=== PATIENT | female | born 1940 | race Two or more races ===

== ENCOUNTER 2024-08-05 13:05 | Inpatient (IN) | payer MEDICARE, OTHER ==
[~2024-08-05] VITALS: Ht 157.5 cm; Wt 62.1 kg
--- NOTE | 2024-08-05 13:26 | ED.PDOC ---
SOB-HPI HPI Comments 83 year old female presents to the ED with chief complaint of SOB. EMS reports that the patient and her family at whole all got the flu a week ago, however, after everyone got over their coughs, the patient's lingered along with SOB. EMS relays that the patient is a/o x 2 at baseline. EMS states patient is currently on hospice for CHF. EMS denies any fever, chills, chest pain, N/V/D, or dizziness. 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, Medications, Allergies Information Source: Patient, Emergency Med Personnel Mode of Arrival: EMS Severity: Moderate Timing: Days Duration: Since onset Context: At Rest PE Risk Factors: None History of: None Prehospital treatment: Oxygen Modifying Factors: Nothing Past Medical History PAST MEDICAL HISTORY: CHF, COPD, HTN Surgical History: Denies all surgeries BATTERY CONTAINER TESTER History: Denies all BATTERY CONTAINER TESTER Hx Family History Family History: Reviewed,noncontributory to illness, Unknown Social History Smoker: Unknown Alcohol: Unknown Drugs: Unknown Lives In: Home, Assisted Care Constitutional: denies: chills, diaphoresis, fatigue, fever, malaise, sweats, weakness, others EENTM: denies: blurred vision, double vision, ear bleeding, ear discharge, ear drainage, ear pain, ear ringing, eye pain, eye redness, hearing loss, mouth pain, mouth swelling, nasal discharge, nose bleeding, nose congestion, nose pain, photophobia, tearing, throat pain, throat swelling, voice changes, others Respiratory: reports: cough, shortness of breath; denies: hemoptysis, orthopnea, SOB at rest, SOB with excertion, stridor, wheezing, others Cardiovascular: denies: chest pain, dizzy spells, diaphoresis, Dyspnea on exertion, edema, irregular heart beat, left arm pain, lightheadedness, palpitations, PND, syncope, others Gastrointestinal: denies: abdomen distended, abdominal pain, blood streaked bowels, constipated, diarrhea, dysphagia, difficulty swallowing, hematemesis, melena, nausea, poor appetite, poor fluid intake, rectal bleeding, rectal pain, vomiting, others Genitourinary: denies: abnormal vagina bleeding, burning, dyspareunia, dysuria, flank pain, frequency, hematuria, incontinence, pain, , vagina discharge, urgency, others Neurological: denies: dizziness, fainting, headache, left sided numbness, left sided weakness, numbness, paresthesia, pre-existing deficit, right sided numb ness, right sided weakness, seizure, speech problems, tingling, tremors, weakness, others Musculoskeletal: denies: back pain, gout, joint pain, joint swelling, muscle pain, muscle stiffness, neck pain, others Integumetry: denies: bruises, change in color, change in hair/nails, dryness, laceration, lesions, lumps, rash, wounds, others Allergic/Immunocompromised: denies: Difficulty Healing, Frequent Infections, Hives, Itching, others Hematologic/Lymphatic: denies: anemia, blood clots, easy bleeding, easy bruising, swollen glands, others Endocrine: denies: excessive hunger, excessive sweating, excessive thirst, excessive urination, flushing, intolerance to cold, intolerance to heat, unexplained weight gain, unexplained weight loss, others Psychiatric: denies: anxiety, bipolar disorder, depression, hopeless, panic disorder, schizophrenia, sleepless, suicidal, others All Other Systems: Reviewed and Negative Physical Exam General Appearance: Moderate Distress, Normal HEENT: Normal ENT Inspection, PERRL/EOMI Neck: Full Range of Motion, Non-Tender, Normal, Normal Inspection Respiratory: Chest Non-Tender, Lungs Clear, No Accessory Muscle Use, No Respiratory Distress, Normal Breath Sounds Cardiovascular: No Edema, No JVD, No Murmur, No Gallop, Normal Peripheral Pulses, Regular Rate/Rhythm Breast Exam: Deferred Gastrointestinal: No Organomegaly, Non Tender, No Pulsatile Mass, Normal Bowel Sounds, Soft Genitalia: Deferred Pelvic: Deferred Rectal: Deferred Extremities: No calf tenderness, Normal capillary refill, Normal inspection, Normal range of motion, Non-tender, No pedal edema Musculoskeletal : Apperance: Normal Neurologic: Alert, 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 Was a procedure done?: No Differential Dx Differential Diagnosis: Anxiety, Asthma, Bronchitis, CHF, COPD X-Ray, Labs, Meds, VS Vital Signs Date Time Temp Pulse Resp B/P (MAP) Pulse Ox O2 Delivery O2 Flow Rate FiO2 08/05/24 14:05 78 08/05/24 13:51 97.8 75 20 109/60 (76) 94 Lab Test 08/05/24 14:27 Range/Units White Blood Count Pending Red Blood Count Pending Hemoglobin Pending Hematocrit Pending Mean Corpuscular Volume Pending Mean Corpuscular Hemoglobin Pending Mean Corpuscular Hemoglobin Concent Pending Red Cell Distribution Width Pending Platelet Count Pending Mean Platelet Volume Pending Neutrophils (%) (Auto) Pending Lymphocytes (%) (Auto) Pending Monocytes (%) (Auto) Pending Basophils (%) (Auto) Pending Neutrophils # (Auto) Pending Lymphocytes # (Auto) Pending Monocytes # (Auto) Pending Sodium Level Pending Potassium Level Pending Chloride Level Pending Carbon Dioxide Level Pending Anion Gap Pending Blood Urea Nitrogen Pending Creatinine Pending Glomerular Filtration Rate Calc Pending BUN/Creatinine Ratio Pending Serum Glucose Pending Calcium Level Pending Troponin I High Sensitivity Pending B-Type Natriuretic Peptide Pending Patient appropriate. Complaining of cough. Has been having cough for many weeks. Vitals stable. She is on hospice. No leg swelling. Chronic history. Reviewed her previous visit. Was given steroid. Waiting for family. Continue cardiac monitoring. EKG reviewed does not show any acute changes. Chest x-ray reviewed does show pneumonia. Was given Rocephin. Was given azithromycin. Time of 1ST Reevaluation: 14:20 Reevaluation 1ST: Unchanged Patient Education/Counseling: Diagnosis, Treatment Family Education/Counseling: No Family Present Additional Information I reviewed the following notes from patient's past medical encounters: None The following tests were ordered, and results were reviewed by me: (Labs, XY, EK G) Additional Information was gathered from interviewing the following independent historians: EMS I reviewed and agreed with the following test results read by other providers: (X-Ray, CT, US) I discussed treatment and results with medical personnel. Departure 1 Departure Time of Disposition: 14:43 Impression: Primary Impression: Pneumonia Qualified Codes: J18.9 - Pneumonia, unspecified organism Disposition: ADMITTED INPATIENT Admit to: Med Surg Condition: Guarded Critical Care Note Critical Care Time?: No Stability Stability form required: No Heart Score Heart Score: Heart Score Response (Comments) Value History Slightly Suspicious 0 EKG Normal 0 Age >65 2 Risk Factors >3 or Hx ASHD 2 Troponin Normal limit 0 Total 4 I personally scribed for EARLE MAZA MD ([email or web address]) on 08/05/24 at 13:26. Electronically submitted by Nilton Jack ([email or web address]). EARLE MAZA MD Aug 05, 2024 13:26
--- NOTE | 2024-08-05 14:05 | DVH ---
EXAM: XY CHEST PORTABLE Indication: cough Technique: Single frontal view of the chest was obtained Comparison: None FINDINGS: Lines and Tubes: None Lungs: Diffuse interstitial opacities. Pleura: No effusion. No pneumothorax. Cardiomediastinal contours: Unremarkable Bones: No acute osseous abnormality. IMPRESSION: Findings suggestive of multifocal pneumonia.
[2024-08-05 14:50] LABS: Basophils # (auto) 0.1 10 ^3/uL (0-0.2); Basophils % (auto) 0.7 % (0.0-2.0); Eosinophils # (auto) 0.1 10 ^3/uL (0-0.8); Hematocrit 33.2 % (36.0-46.0); Hemoglobin 11.2 g/dL (12.2-16.2); Lymphocytes # (auto) 1.8 10 ^3/uL (0.4-5.4); Lymphocytes % (auto) 19.1 % (10.0-50.0); Mean Corpuscular Hemoglobin 32.8 pg (28.0-32.0); Mean Corpuscular Hgb Conc. 33.9 g/dL (32.0-36.0); Mean Corpuscular Volume 96.9 fL (80.0-100.0); Monocytes # (auto) 1.1 10 ^3/uL (0-1.3); Monocytes % (auto) 11.7 % (0.0-12.0); Neutrophils # (auto) 6.4 10 ^3/uL (1.6-8.6); Neutrophils % (auto) 67.5 % (37.0-80.0); Nucleated Red Blood Cells % 0.2 %; Platelet Count (auto) 173 10^3/uL (140-450); Red Blood Cells 3.42 10^6/uL (4.0-5.20); Red Cell Distribution Width 12.8 % (11.8-14.3); White Blood Cell 9.5 10^3/uL (4.4-10.8)
[2024-08-05 14:52] LABS: Anion Gap 7 (5-15); Carbon Dioxide 26 mmol/L (20-31); Chloride 102 mmol/L (98-107)
[2024-08-05 14:58] LABS: BUN/Creatinine Ratio 16.7 (10.0-20.0); Blood Urea Nitrogen 16 mg/dL (9-23); Glucose 95 mg/dL (74-106)
[2024-08-05 14:59] LABS: Sodium 135 mmol/L (136-145)
[2024-08-05 15:14] VITALS: PULSE 77; RESP 17; O2SAT 95
[2024-08-05] MEDS ORDERED: ACETAMINOPHEN 325 MG TAB PO PRN (16:45)
[2024-08-05] MEDS ORDERED: PANT40TA57 PO (16:56)
[2024-08-05] MEDS ORDERED: CLOP75TA70 PO (16:56)
[2024-08-05] MEDS ORDERED: LEVO75TA6 PO (16:56)
[2024-08-05] MEDS: AZITHROMYCIN 500MG/ 250ML 250 ML IV ONE (17:07)
[2024-08-05] MEDS: methylPREDNISolone SOD SUCC 125 MG/2 ML VL IV ONE (17:07)
--- NOTE | 2024-08-05 17:08 | DVHHP2 ---
History of Present Illness Reason for Visit: Cough and SOB History of Present Illness Susana Hickman is an 83-year-old female with past medical history of hypertension, COPD, and CHF on hospice who presents to the ED with shortness of breath and cough since Saturday. Patient's daughter in-law reports that she has been sick with a cold. She also reports that she uses oxygen at night unsure what dose. Patient's [id number] Myrna reports that patient does not drink alcohol, smoke, or use illicit drugs, or have any surgical history. Patient denies any chest pain, abdominal pain, nausea, vomiting, diarrhea, lightheadedness, fever, chills, and dizziness. Cardiovascular: CHF, HTN Pulmonary: COPD Past Surgical History: None Family History: None Smoke: No ALCOHOL: none Drugs: None Lives: with Family Domestic Violence: Neg Review of Systems Constitutional: No: Fever, Chills, Sweats, Weakness, Malaise, Other Eyes: No: Pain, Vision change, Conjunctivae inflammation, Eyelid inflammation, Other, Redness ENT: No: Ear pain, Ear discharge, Nose pain, Nose discharge, Nose congestion, Mouth pain, Mouth swelling, Throat pain, Throat swelling, Other Respiratory: Cough, Shortness of breath; No: Dry, SOB with excertion, Wheezing, Hemoptysis, Pleuritic Pain, Sputum, Wheezing, Other Cardiovascular: No: Chest Pain, Palpitations, Orthopnea, Paroxysmal Noc. Dyspnea, Edema, Lt Headedness, Other Gastrointestinal: No: Nausea, Vomiting, Abdominal Pain, Diarrhea, Constipation, Melena, Hematochezia, Other Genitourinary: No Dysuria, No Frequency, No Incontinence, No Hematuria, No Retention, No Other Musculoskeletal: No: other, neck pain, shoulder pain, arm pain, back pain, hand pain, leg pain, foot pain Skin: No: Rash, Lesions, Jaundice, Bruising, Other Neurological: No: Weakness, Numbness, Incoordination, Change in speech, Confusion, Seizures, Other Allergies: Coded Allergies: Penicillins (Verified Allergy, Unknown, 08/05/24) Sulfa Antibiotics (Verified Allergy, Unknown, 08/05/24) Exam Vital Signs Vital Signs Date Time Temp Pulse Resp B/P (MAP) Pulse Ox O2 Delivery O2 Flow Rate FiO2 08/05/24 15:14 77 17 95 Nasal Cannula* 4 36 08/05/24 13:51 97.8 109/60 (76) General Appearance: Alert, Oriented X3, Cooperative, mild distress HEENT: Atraumatic, PERRLA, EOMI, Mucous membr. moist/pink Respiratory: Clear to auscultation, Normal air movement Cardiovascular: Regular rate, Normal S1, Normal S2, No murmurs Abdominal: Normal bowel sounds, Soft, No tenderness, No hepatospenomegaly, No masses Extremities: No clubbing, No cyanosis, No edema, Normal pulses, No tendern ess/swelling Skin: No breakdown, No significant lesion Neuro: Normal speech, Normal tone, Sensation intact Psych/Mental Status: Mental status NL, Mood NL Labs/Xrays Labs Test 08/05/24 14:27 Range/Units White Blood Count 9.5 4.4-10.8 10^3/uL Red Blood Count 3.42 L 4.0-5.20 10^6/uL Hemoglobin 11.2 L 12.2-16.2 g/dL Hematocrit 33.2 L 36.0-46.0 % Mean Corpuscular Volume 96.9 80.0-100.0 fL Mean Corpuscular Hemoglobin 32.8 H 28.0-32.0 pg Mean Corpuscular Hemoglobin Concent 33.9 32.0-36.0 g/dL Red Cell Distribution Width 12.8 11.8-14.3 % Platelet Count 173 140-450 10^3/uL Mean Platelet Volume 7.2 6.9-10.8 fL Neutrophils (%) (Auto) 67.5 37.0-80.0 % Lymphocytes (%) (Auto) 19.1 10.0-50.0 % Monocytes (%) (Auto) 11.7 0.0-12.0 % Eosinophils (%) (Auto) 1.0 0.0-7.0 % Basophils (%) (Auto) 0.7 0.0-2.0 % Neutrophils # (Auto) 6.4 1.6-8.6 10 ^3/uL Lymphocytes # (Auto) 1.8 0.4-5.4 10 ^3/uL Monocytes # (Auto) 1.1 0-1.3 10 ^3/uL Eosinophils # (Auto) 0.1 0-0.8 10 ^3/uL Basophils # (Auto) 0.1 0-0.2 10 ^3/uL Nucleated Red Blood Cells 0.2 % Sodium Level 135 L 136-145 mmol/L Potassium Level 3.0 L 3.5-5.1 mmol/L Chloride Level 102 98-107 mmol/L Carbon Dioxide Level 26 20-31 mmol/L Anion Gap 7 5-15 Blood Urea Nitrogen 16 9-23 mg/dL Creatinine 0.96 0.550-1.02 mg/dL Glomerular Filtration Rate Calc 58 >90 mL/min BUN/Creatinine Ratio 16.7 10.0-20.0 Serum Glucose 95 74-106 mg/dL Calcium Level 9.0 8.7-10.4 mg/dL Troponin I High Sensitivity 33 </=34 ng/L B-Type Natriuretic Peptide 745.71 0-100 pg/mL EXAM: XY CHEST PORTABLE Indication: cough Technique: Single frontal view of the chest was obtained Comparison: None FINDINGS: Lines and Tubes: None Lungs: Diffuse interstitial opacities. Pleura: No effusion. No pneumothorax. Cardiomediastinal contours: Unremarkable Bones: No acute osseous abnormality. IMPRESSION: Findings suggestive of multifocal pneumonia. Assessment/Plan Assessment/Plan Assessment/Plan: PNA IV Solu-Medrol IV antibiotics-ceftriaxone+ azithromycin EKG UA Chest x-ray BNP Troponin negative Lovenox Echo ordered Supportive oxygen Oxygen dependence Chest x-ray a.m. Labs A.m. lab Respiratory treatments IV steroids Hypokalemia Replete lytes Chronic hypertension Continue home meds Chronic CHF Continue home meds FEN/PPX diet HL DVT prophylaxis-Lovenox PUD prophylaxis-Protonix Admit patient to telemetry Discussed plan of care with patient, [id number], and nurse Home medications reconciled Plan discussed with: Patient, Other My Orders Orders - MADHU TENA FISHER Procedure Category Date Status Time Ceftriaxone Ivpb PHA 08/06/24 Verified Rocephin 09:00 Chest Xray 1 View XY 08/06/24 Verified 04:00 Potassium Effervesent PHA 08/05/24 Verified Tab (Klor-Con/Ef) 16:45 Echo 2d Mode Cardiac US 08/05/24 Verified DOP 16:38 Admit ADMIT 08/05/24 Verified 16:38 Allergies MAJOR 08/05/24 Verified 16:38 Code Status CODE 08/05/24 Verified 16:38 Complete Blood Count LAB 08/06/24 Verified 04:00 Comprehensive LAB 1/16/25 Verified Metabolic Panel 04:00 Cardiac DIET 08/05/24 Verified Diet-2gna,Lofat,Lochol Dinner Enoxaparin Sodium PHA 08/06/24 Verified (Lovenox) 10:00 Acetaminophen Tablet PHA 08/05/24 Verified (Tylenol Tablet) 16:45 Date of Service: Aug 05, 2024 Billing Provider: MADHU TENA Common Visit Codes: [id number] INP/OBS CARE (HIGH) MADHU TENA Aug 05, 2024 17:08
[2024-08-05] MEDS: cefTRIAXone 1GM/50ML D5W 50 ML IV ONE (17:14)
[2024-08-05] MEDS ORDERED: ALBUTEROL SULF 2.5 MG/0.5ML(0.5%) NEB SOLN NEB PRN (17:15)
[2024-08-05] MEDS ORDERED: IPRATROPIUM BROM 0.5 MG/2.5ML INH SOL NEB PRN (17:15)
[2024-08-05] MEDS: POTASSIUM EFFERVESENT TAB 25 MEQ PO ONE (17:22)
[2024-08-05 18:10] VITALS: PULSE 64; RESP 28; O2SAT 95
[2024-08-05] MEDS: ALBUTEROL SULF 2.5 MG/0.5ML(0.5%) NEB SOLN NEB SCH (18:10)
[2024-08-05] MEDS: IPRATROPIUM BROM 0.5 MG/2.5ML INH SOL NEB SCH (18:10)
[2024-08-05 18:23] VITALS: PULSE 77; RESP 30; O2SAT 97
[2024-08-05 19:03] LABS: Urine Bacteria None Seen /hpf (None Seen)
--- NOTE | 2024-08-05 19:03 | ECG ---
[facility] Test Date: 2024-08-05 Test Time: 14:05:09 Pat Name: MAYRA RENDON Department: ER Room: 0296T Gender: F Order Desk Clerk: ROSETTE : 1940 Requested By: EARLE MAZA Order Number: [id number] Reading MD: Shadi Chase Measurements Intervals [place] Rate: 78 P: 15 AL: 170 QRS: -40 QRSD: 164 T: 107 QT: 442 QTc: 504 Interpretive Statements Sinus rhythm Left bundle branch block Electronically Signed On 08-09-2024 15:36:54 PST by Shadi Chase Please click the below link to view image of tracing.
[2024-08-05 19:34] VITALS: BP 105/57; PULSE 77; RESP 20; TEMP 99.6; O2SAT 94
[2024-08-05 19:40] LABS: Urine Blood Negative /uL (Negative); Urine Clarity Clear (Clear); Urine Color Yellow (Yellow); Urine Hyaline Cast FEW /lpf (0 - 2); Urine Mucus FEW (None Seen); Urine Protein, UAD TRACE (Negative); Urine Specific Gravity 1.019 (1.001-1.035); Urine Squamous Epithelial Cell FEW /hpf (<5); Urine Urobilinogen 2 mg/dL (Negative); Urine WBC 1 /hpf (0 - 5); Urine pH 5.5 (5.0-9.0)
[2024-08-05] MEDS: methylPREDNISolone SOD SUCC 40 MG/ML VL IV SCH (21:46)
[2024-08-05] MEDS: AZTREONAM 1GM INJ 1 GM in D5W 5% 50 ML IV SCH (21:47)
[2024-08-06] VITALS (8 sets, daily range): BP systolic 109; BP diastolic 65; PULSE 61–78; RESP 16–18; TEMP 97.8; O2SAT 92–97
[2024-08-06 01:29] LABS: COVID19 ANTIGEN SOFIA FIA NEGATIVE (NEGATIVE); Rapid Influenza A Negative (Negative); Rapid Influenza B Negative (Negative)
--- NOTE | 2024-08-06 06:24 | DVH ---
CHEST RADIOGRAPH Indication: pna Technique: Single frontal view of the chest was obtained Comparison: XY CHEST PORTABLE on DOS: 08/05/24, XY CHEST PORTABLE on DOS: 08/05/24 FINDINGS: Lines and Tubes: None Lungs: Diffuse interstitial opacities. Pleura: No effusion. No pneumothorax. Cardiomediastinal contours: Unremarkable Bones: No acute osseous abnormality. IMPRESSION: Findings suggestive of multifocal pneumonia.
[2024-08-06 07:12] LABS: Basophils # (auto) 0 10 ^3/uL (0-0.2); Basophils % (auto) 0.1 % (0.0-2.0); Eosinophils # (auto) 0 10 ^3/uL (0-0.8); Hematocrit 33.3 % (36.0-46.0); Hemoglobin 11.3 g/dL (12.2-16.2); Lymphocytes # (auto) 0.5 10 ^3/uL (0.4-5.4); Mean Corpuscular Hgb Conc. 33.8 g/dL (32.0-36.0); Mean Corpuscular Volume 97.6 fL (80.0-100.0); Monocytes # (auto) 0.1 10 ^3/uL (0-1.3); Neutrophils # (auto) 4.3 10 ^3/uL (1.6-8.6); Neutrophils % (auto) 87.9 % (37.0-80.0); Nucleated Red Blood Cells % 0.2 %; Platelet Count (auto) 170 10^3/uL (140-450); Red Blood Cells 3.41 10^6/uL (4.0-5.20); Red Cell Distribution Width 12.5 % (11.8-14.3); White Blood Cell 4.9 10^3/uL (4.4-10.8)
[2024-08-06 07:32] LABS: Alanine Aminotransferase 11 U/L (7-40); Albumin 3.3 g/dL (3.2-4.8); Alkaline Phosphatase 83 U/L (46-116); Aspartate Aminotransferase 19 U/L (13-40); Calcium 9.4 mg/dL (8.7-10.4); Chloride 101 mmol/L (98-107); Sodium 136 mmol/L (136-145)
[2024-08-06 07:33] LABS: Bilirubin, Total 0.8 mg/dL (0.2-1.0); Glucose 159 mg/dL (74-106); Potassium 3.1 mmol/L (3.5-5.1); Total Protein 5.9 g/dL (5.7-8.2)
[2024-08-06 07:40] LABS: Anion Gap 7 (5-15); BUN/Creatinine Ratio 18.3 (10.0-20.0); Blood Urea Nitrogen 17 mg/dL (9-23); Carbon Dioxide 28 mmol/L (20-31)
[2024-08-06] MEDS ORDERED: cefTRIAXone 1GM/50ML D5W 50 ML IV SCH (09:00)
[2024-08-06] MEDS: AZITHROMYCIN 500MG/ 250ML 250 ML IV SCH (10:00)
[2024-08-06] MEDS: PANTOPRAZOLE 40 MG/10 ML VIAL INJ IV SCH (10:32)
[2024-08-06] MEDS: ENOXAPARIN SOD 30 MG/0.3 ML SYRINGE SC SCH (10:34)
[2024-08-07] VITALS (15 sets, daily range): BP systolic 91–98; BP diastolic 49–56; PULSE 60–69; RESP 16–18; TEMP 97.6–97.9; O2SAT 95–98
[2024-08-07] MEDS ORDERED: LORA-655 PO (10:19)
[2024-08-07] MEDS ORDERED: TRAM50TA2 PO (10:34)
[2024-08-07] MEDS ORDERED: ASPI-498 PO (10:34)
[2024-08-07] MEDS ORDERED: FURO40TA4 PO (10:34)
[2024-08-07] MEDS ORDERED: BUPR75TA96 PO (10:34)
[2024-08-07] MEDS ORDERED: TEMA15CA PO (10:34)
--- NOTE | 2024-08-07 15:54 | DVHSR ---
APPROVED REPORT EXAM: Two-dimensional and M-mode echocardiogram with Doppler and color Doppler. Blood Pressure: 96/51 mmHg INDICATION Dyspnea RISK FACTORS Height: 5'2", Weight: 130 DIMENSIONS LVDd6.0 (3.8-5.7cm)LA (2D)5.4 (1.9-4.0cm)Aortic Root2.6 (2.0-3.7cm) LVDs5.4 (2.5-4.0cm)LA (MM) (1.9-4.0cm)Aortic Cusp Exc1.4 (1.5-2.0cm) EF (%) 20.0 (55-70%)Rt. Atrium3.4 (1.9-4.0cm)Asc. Aorta cm IVSd0.6 (0.7-1.1cm)RV (D)3.8 (1.8-2.4cm) PWd0.9 (0.7-1.1cm) Mitral Valve MitralMitral Stenosis E wave1.27m/sMV Mean GR.mmHg A wave0.54m/sMV Peak GR.mmHg E/A ratio2.42D MVAcm2 DECEL [id number] 1/2 Timems Aortic Valve Aortic ValveAortic Stenosis V10.48m/Wil Mean GR.4mmHg V21.20m/Wil Peak GR.6mmHg LVOT Diameter1.9 (1.8-2.4cm)Doppler AVA1.13cm2 Tricuspid Valve TR Velocity2.52m/s [id number] Other Information Quality : Technically LimitedRhythm : Technically limited study due to body habitus. Conclusion lvef 15% by visual estimate severe dilated LV cardiomyopathy severe mitral regurg significant LA enlarged
--- NOTE | 2024-08-07 16:41 | DVHPN2 ---
Subjective Seen and examined at bedside, Patient is on 3-4L oxygen. Start Lasix IV. Changes from previous H/P or p: No Changes Eyes: No Pain, No Vision change, No Conjunctivae inflammation, No Eyelid inflammation, No Other, No Redness ENT: No Ear pain, No Ear discharge, No Nose pain, No Nose discharge, No Nose congestion, No Mouth pain, No Mouth swelling, No Throat pain, No Throat swelling, No Other Cardiovascular: No Chest Pain, No Palpitations, No Orthopnea, No Paroxysmal Noc. Dyspnea, No Edema, No Lt Headedness, No Other Respiratory: Cough; No Dry; Shortness of breath; No SOB with excertion, No Wheezing, No Hemoptysis, No Pleuritic Pain, No Sputum, No Other Gastrointestinal: No Nausea, No Vomiting, No Abdominal Pain, No Diarrhea, No Constipation, No Melena, No Hematochezia, No Other Genitourinary: No Dysuria, No Frequency, No Incontinence, No Hematuria, No Retention, No Other Musculoskeletal: No other, No neck pain, No shoulder pain, No arm pain, No back pain, No hand pain, No leg pain, No foot pain Skin: No Rash, No Lesions, No Jaundice, No Bruising, No Other Objective Vitals Vital Signs Date Time Temp Pulse Resp B/P (MAP) Pulse Ox O2 Delivery O2 Flow Rate FiO2 08/07/24 13:00 97.9 67 18 98/56 (70) 96 97.9 08/07/24 11:17 Nasal Cannula* 3 32 Intake/Output Intake and Output 08/07/24 07:00 Intake Total 50 ml Output Total 525 ml Balance -475 ml IV Total 50 ml Output Urine Total 525 ml Exam Gen: in bed mild distress Cvs: N S1/S2, RRR Resp: Creps b/l Abd: Soft, NT Staff Appraiser: AAO x 3 Medications Current Medications Medications Dose Ordered Sig/Jarod Route Start Time Stop Time Status Last Admin Dose Admin Enoxaparin Sodium 30 mg DAILY SC 08/06/24 10:00 08/07/24 09:28 30 MG Acetaminophen 650 mg Q6HP PRN PO 08/05/24 16:45 Azithromycin 250 ml @ 125 mls/hr DAILY IV 08/06/24 10:00 08/07/24 09:28 125 MLS/HR Albuterol 2.5 mg Q6HWA NEB 08/05/24 18:00 08/07/24 11:17 2.5 MG Albuterol 2.5 mg Q4HPRN PRN [facility] 08/05/24 17:15 Ipratropium [place] 0.5 mg Q6HWA [facility] 08/05/24 18:00 08/07/24 11:17 0.5 MG Ipratropium [place] 0.5 mg Q4HPRN PRN [facility] 08/05/24 17:15 Pantoprazole Sodium 40 mg DAILY IV 08/06/24 10:00 08/07/24 09:27 40 MG Methylprednisolone Sodium Succinate 40 mg Q8HR IV 08/05/24 22:00 08/07/24 14:46 40 MG Aztreonam 1 gm/ Dextrose 50 ml @ 50 mls/hr Q8HR IV 08/05/24 22:00 08/07/24 13:43 50 MLS/HR Laboratory Results Laboratory Tests 08/06/24 05:48 Urinalysis Test 08/05/24 19:01 Urine Color Yellow (Yellow) Urine Clarity Clear (Clear) Urine pH 5.5 (5.0-9.0) Urine Specific [place] 1.019 (1.001-1.035) Urine Protein Trace (Negative) H Urine Ketones Negative (Negative) Urine Blood Negative /uL (Negative) Urine Nitrite Negative (Negative) Urine Bilirubin Negative (Negative) Urine Urobilinogen 2 mg/dL (Negative) H Urine Leukocyte Esterase Negative /uL (Negative) Urine RBC 1 /hpf (0 - 4) Urine WBC 1 /hpf (0 - 5) Urine Squamous Epithelial Cells Few /hpf (<5) Urine Calcium Oxalate Crystals Few (None Seen) Urine Bacteria None seen /hpf (None Seen) Urine Hyaline Casts Few /lpf (0 - 2) Urine Waxy Casts Few /lpf (0) Urine Mucus Few (None Seen) Urine Glucose Normal mg/dL (Normal) Assessment/Plan Assessment/Plan Acute Systolic CHF Exacerbation Lasix IV Monitor for fluid overload EF 10-15% Acute on Chronic Resp Failure - Titrate oxygen down PNA, possible Gram Neg IV Solu-Medrol IV antibiotics-Aztreonam+ azithromycin Respiratory treatments IV steroids Hypokalemia Replete lytes Chronic hypertension BP on lower side. Not on any meds d/w Tiffany Everett discussed with: Patient, Daughter My Orders Orders - ERNST ROSE MD Procedure Category Date Status Time Furosemide Injection PHA 08/07/24 Transmitted (Lasix Injection) 16:45 Furosemide Injection PHA 08/08/24 Transmitted (Lasix Injection) 10:00 Potassium Effervesent PHA 08/07/24 Transmitted Tab (Klor-Con/Ef) 16:45 Complete Blood Count LAB 08/08/24 Verified 04:00 Comprehensive LAB 08/08/24 Verified Metabolic Panel 04:00 B-Type Natriuretic LAB 08/08/24 Verified Peptide 04:00 Magnesium LAB 08/08/24 Verified 04:00 Potassium Chl Schuyler PHA 08/07/24 Transmitted KCL 16:45 Methylprednisolone PHA 08/08/24 Verified Sod Succ (Solu Medrol 07:00 Date of Service: Aug 07, 2024 Billing Provider: ERNST ROSE MD Common Visit Codes: [id number] INP/OBS CARE(HIGH) ERNST ROSE MD Aug 07, 2024 16:41
[2024-08-07] MEDS: FUROSEMIDE 20 MG/2 ML VIAL IV ONE (16:45)
[2024-08-07] MEDS ORDERED: LORazepam 0.5 MG TAB PO PRN (17:00)
[2024-08-07 17:13] LABS: Base Excess 2.8 mmol/L (-2.0-3.0)
[2024-08-07] MEDS: POTASSIUM EFFERVESENT TAB 25 MEQ PO ONE (17:23)
[2024-08-07] MEDS: POTASSIUM CHLORIDE 40 MEQ, LIDOCAINE 1% (LOCAL ANESTH.) 4 ML in SODIUM CHL 0.9% 250 ML IV ONE (17:57)
[2024-08-08] VITALS (11 sets, daily range): BP systolic 97–104; BP diastolic 50–55; PULSE 60–78; RESP 15–20; TEMP 97.3–98; O2SAT 96–98
[2024-08-08 07:23] LABS: Alanine Aminotransferase 13 U/L (7-40); Alkaline Phosphatase 74 U/L (46-116); Anion Gap 5 (5-15); Aspartate Aminotransferase 21 U/L (13-40); BUN/Creatinine Ratio 30.9 (10.0-20.0); Bilirubin, Total 0.3 mg/dL (0.2-1.0); Calcium 9.5 mg/dL (8.7-10.4); Carbon Dioxide 29 mmol/L (20-31); Chloride 106 mmol/L (98-107); Potassium 4.3 mmol/L (3.5-5.1); Sodium 140 mmol/L (136-145)
[2024-08-08 07:25] LABS: Albumin 3.2 g/dL (3.2-4.8); Blood Urea Nitrogen 34 mg/dL (9-23); Glucose 103 mg/dL (74-106); Total Protein 5.6 g/dL (5.7-8.2)
[2024-08-08 08:04] LABS: Basophils # (auto) 0 10 ^3/uL (0-0.2); Eosinophils # (auto) 0 10 ^3/uL (0-0.8); Hematocrit 31.3 % (36.0-46.0); Hemoglobin 10.5 g/dL (12.2-16.2); Lymphocytes # (auto) 1.6 10 ^3/uL (0.4-5.4); Lymphocytes % (auto) 14.1 % (10.0-50.0); Mean Corpuscular Hemoglobin 32.5 pg (28.0-32.0); Mean Corpuscular Hgb Conc. 33.5 g/dL (32.0-36.0); Mean Corpuscular Volume 97.1 fL (80.0-100.0); Monocytes # (auto) 0.9 10 ^3/uL (0-1.3); Monocytes % (auto) 8.1 % (0.0-12.0); Neutrophils # (auto) 8.6 10 ^3/uL (1.6-8.6); Neutrophils % (auto) 77.8 % (37.0-80.0); Platelet Count (auto) 210 10^3/uL (140-450); Red Blood Cells 3.23 10^6/uL (4.0-5.20); Red Cell Distribution Width 12.6 % (11.8-14.3)
[2024-08-08] MEDS: methylPREDNISolone SOD SUCC 40 MG/ML VL IV SCH (09:12)
[2024-08-08] MEDS: FUROSEMIDE 20 MG/2 ML VIAL IV SCH (09:14)
--- NOTE | 2024-08-08 10:28 | DVHDS2 ---
Discharge Summary Date of Admission Aug 05, 2024 at 16:56 Date of Discharge: Aug 08, 2024 Admitting Diagnosis Acute Systolic CHF Exacerbation Labs/Diagnostic Data: Laboratory Results Test 08/08/24 06:23 08/07/24 17:05 08/05/24 23:42 08/05/24 19:01 White Blood Count 11.0 10^3/uL (4.4-10.8) Red Blood Count 3.23 10^6/uL (4.0-5.20) Hemoglobin 10.5 g/dL (12.2-16.2) Hematocrit 31.3 % (36.0-46.0) Mean Corpuscular Volume 97.1 fL (80.0-100.0) Mean Corpuscular Hemoglobin 32.5 pg (28.0-32.0) Mean Corpuscular Hemoglobin Concent 33.5 g/dL (32.0-36.0) Red Cell Distribution Width 12.6 % (11.8-14.3) Platelet Count 210 10^3/uL (140-450) Mean Platelet Volume 7.7 fL (6.9-10.8) Neutrophils (%) (Auto) 77.8 % (37.0-80.0) Lymphocytes (%) (Auto) 14.1 % (10.0-50.0) Monocytes (%) (Auto) 8.1 % (0.0-12.0) Eosinophils (%) (Auto) 0.0 % (0.0-7.0) Basophils (%) (Auto) 0.0 % (0.0-2.0) Neutrophils # (Auto) 8.6 10 ^3/uL (1.6-8.6) Lymphocytes # (Auto) 1.6 10 ^3/uL (0.4-5.4) Monocytes # (Auto) 0.9 10 ^3/uL (0-1.3) Eosinophils # (Auto) 0 10 ^3/uL (0-0.8) Basophils # (Auto) 0 10 ^3/uL (0-0.2) Nucleated Red Blood Cells 0.0 % Sodium Level 140 mmol/L (136-145) Potassium Level 4.3 mmol/L (3.5-5.1) Chloride Level 106 mmol/L (98-107) Carbon Dioxide Level 29 mmol/L (20-31) Anion Gap 5 (5-15) Blood Urea Nitrogen 34 mg/dL (9-23) Creatinine 1.10 mg/dL (0.550-1.02) Glomerular Filtration Rate Calc 49 mL/min (>90) BUN/Creatinine Ratio 30.9 (10.0-20.0) Serum Glucose 103 mg/dL (74-106) Calcium Level 9.5 mg/dL (8.7-10.4) Magnesium Level 2.0 mg/dL (1.6-2.6) Total Bilirubin 0.3 mg/dL (0.2-1.0) Aspartate Amino Transferase (AST) 21 U/L (13-40) Alanine Aminotransferase (ALT) 13 U/L (7-40) Alkaline Phosphatase 74 U/L (46-116) B-Type Natriuretic Peptide 572.64 pg/mL (0-100) Total Protein 5.6 g/dL (5.7-8.2) Albumin 3.2 g/dL (3.2-4.8) Blood Gas Specimen Type Arterial Blood Gas Sample Site Right radial Blood Gas Patient Temperature 37.0 Arterial Blood Date Drawn [id number] Arterial Blood pH 7.490 (7.350-7.450) Arterial Blood Partial Pressure CO2 34.9 mmHg (32.0-45.0) Arterial Blood Partial Pressure O2 59.5 mmHg (83.0-108.0) Arterial Blood HCO3 26.0 mmol/L (21.0-28.0) Arterial Blood Oxygen Saturation 90.2 % (94.0-98.0) Arterial Blood Base Excess 2.8 mmol/L (-2.0-3.0) Arterial Blood Oxyhemoglobin 89.7 % (94.0-98.0) Arterial Blood Carboxyhemoglobin 0.1 % (0.5-1.5) Arterial Blood Methemoglobin 0.4 % (0.0-1.5) Trent Test Yes Blood Gas Total Hemoglobin 10.90 g/dL (12.0-16.0) Blood Gas Modality Room air FiO2 % 21.0 Influenza Type A Antigen Negative (Negative) Influenza Type B Antigen Negative (Negative) SARS-CoV-2 Antigen (Rapid) Negative (NEGATIVE) Urine Color Yellow (Yellow) Urine Clarity Clear (Clear) Urine pH 5.5 (5.0-9.0) Urine Specific [place] 1.019 (1.001-1.035) Urine Protein Trace (Negative) Urine Ketones Negative (Negative) Urine Blood Negative /uL (Negative) Urine Nitrite Negative (Negative) Urine Bilirubin Negative (Negative) Urine Urobilinogen 2 mg/dL (Negative) Urine Leukocyte Esterase Negative /uL (Negative) Urine RBC 1 /hpf (0 - 4) Urine WBC 1 /hpf (0 - 5) Urine Squamous Epithelial Cells Few /hpf (<5) Urine Calcium Oxalate Crystals Few (None Seen) Urine Bacteria None seen /hpf (None Seen) Urine Hyaline Casts Few /lpf (0 - 2) Urine Waxy Casts Few /lpf (0) Urine Mucus Few (None Seen) Urine Glucose Normal mg/dL (Normal) Test 08/05/24 14:27 Troponin I High Sensitivity 33 ng/L (</=34) Other Laboratory Tests 08/08/24 06:23 Brief Hx & Hospital Course: Susana Hickman is an 83-year-old female with past medical history of hypertension, COPD, and CHF on hospice who presents to the ED with shortness of breath and cough since Saturday. Patient was admitted for Acute on Chronic Resp Failure. Patients has end stage CHF EF 10-15% per ECHO. Patient was treated with Lasix and Abx for possible PNA. I discussed with the patients daughter, who wishes for the patient to go to rehab for PT. Operations or Procedures EXAM: Two-dimensional and M-mode echocardiogram with Doppler and color Doppler. Blood Pressure: 96/51 mmHg INDICATION Dyspnea RISK FACTORS Height: 5'2", Weight: 130 DIMENSIONS LVDd 6.0 (3.8-5.7cm) LA (2D) 5.4 (1.9-4.0cm) Aortic Root 2.6 (2.0- 3.7cm) LVDs 5.4 (2.5-4.0cm) LA (MM) (1.9-4.0cm) Aortic Cusp Exc 1.4 (1.5- 2.0cm) EF (%) 20.0 (55-70%) Rt. Atrium 3.4 (1.9-4.0cm) Asc. Aorta cm IVSd 0.6 (0.7-1.1cm) RV (D) 3.8 (1.8-2.4cm) PWd 0.9 (0.7-1.1cm) Mitral Valve Mitral Mitral Stenosis E wave 1.27m/s MV Mean GR. mmHg A wave 0.54m/s MV Peak GR. mmHg E/A ratio 2.4 2D MVA cm2 DECEL Time 150ms PRESS 1/2 Time ms Aortic Valve Aortic Valve Aortic Stenosis V1 0.48m/s AO Mean GR. 4mmHg V2 1.20m/s AO Peak GR. 6mmHg LVOT Diameter 1.9 (1.8-2.4cm) Doppler BEATRIZ 1.13cm2 Tricuspid Valve TR Velocity 2.52m/s RVSP 34mmHg Other Information Quality : Technically Limited Rhythm : Technically limited study due to body habitus. Conclusion lvef 15% by visual estimate severe dilated LV cardiomyopathy severe mitral regurg significant LA enlarged Condition at Discharge: Poor Final Diagnosis/Problems List Acute Systolic CHF Exacerbation Lasix Monitor for fluid overload EF 10-15% Acute on Chronic Resp Failure - Titrate oxygen down PNA, possible Aspiration?? IV Solu-Medrol IV antibiotics-Aztreonam+ azithromycin Respiratory treatments IV steroids Hypokalemia Replete lytes Chronic hypertension Discharge Disposition: Care Home Facility Discharge Statement: "Patient was advised to return to the ER or call 911 if any headaches, dizziness, shortness of breath, chest pain, abdominal pain, bleeding, fevers, or worsening of medical condition. Patient was counseled about treatment plan, medications, possible side effects, patientverbalized understanding. All questions were answered to the best of my ability. This discharge took greater then 30 minutes in planning, reviewing documentation, counseling the patient, and discussing with other team members." ASSESSMENT ASSESSMENT Assessment Date of Service: Aug 08, 2024 Billing Provider: ERNST ROSE MD Common Visit Codes: 29146-OAP/OBS DISCH DAY >30min ERNST ROSE MD Aug 08, 2024 10:28
== END 2024-08-08 18:25 | DRG 177 ==
LOC: EDBD 13:05 → ER 13:05 → TELE 16:56 → TELE-WESTW 08-06 22:14
PROVIDERS: ATTEND Internal Medicine
PROC: 05HF33Z Insertion of Infusion Device into Left Cephalic Vein, Percutaneous Approach (ICD-10-PCS; principal; 2024-08-08)
PROC: B54NZZA Ultrasonography of Left Upper Extremity Veins, Guidance (ICD-10-PCS; 2024-08-08)
DX: J69.0 Pneumonitis due to inhalation of food and vomit (principal); I50.23 Acute on chronic systolic (congestive) heart failure; J96.20 Acute and chronic respiratory failure, unspecified whether with hypoxia or hypercapnia; J15.69 Pneumonia due to other Gram-negative bacteria; I11.0 Hypertensive heart disease with heart failure; E87.6 Hypokalemia; Z20.822 Contact with and (suspected) exposure to COVID-19; I50.84 End stage heart failure; J44.9 Chronic obstructive pulmonary disease, unspecified; Z99.81 Dependence on supplemental oxygen; Z88.0 Allergy status to penicillin; Z88.2 Allergy status to sulfonamides
CPT/HCPCS: 36415; 36600; 71045; 80048; 80053; 81001; 82805; 83735; 83880; 84484; 85025; 87426; 87804; 93005; 93306; 94640; 97163; G0378; J2003; J2470; J7060